=== PATIENT | female | born 1960 | race Caucasian/White ===

== ENCOUNTER 2019-06-12 12:51 | Emergency (ER) | payer OTHER, SELFPAY ==
[2019-06-12 12:52] VITALS: BP 174/97; PULSE 99; RESP 18; TEMP 36.8; O2SAT 96; BMI 28.7
--- NOTE | 2019-06-12 13:12 | RAD_ITS ---
STUDY: X-RAY CHEST REASON FOR EXAM: Female, 58 years old. cough, congestion TECHNIQUE: PA and lateral views of the chest. COMPARISON: None. FINDINGS: The lungs are clear and expanded. There is no demonstrated pleural abnormality. Normal size heart. Normal mediastinum and williams. Normal visualized pulmonary arteries. Normal visualized aortic arch and descending thoracic aorta. There are diffuse degenerative changes of the visualized thoracic spine. There is diffuse osteopenia. There is no demonstrated abnormality of the visualized soft tissue structures of the upper abdomen. RAD/Chest PA and Lateral IMPRESSION: No acute cardiopulmonary process. Electronically Signed: Neal Kramer MD (Brooks) at 14:09 EST , Service support ,
--- NOTE | 2019-06-12 13:19 | ED.VIS.GEN ---
History of Present Illness Chief Complaint: Cough Narrative: She presents emergency department for evaluation of cough. She states about 1 and a 1/2 weeks ago she Developed a fever and URI symptoms. She went to urgent care and was felt that it could potentially be influenza. She states that she got better but a few days later got sick again. This time it felt like the cough is in her chest. She notes yellow sputum production. She went back to urgent care about 3 days ago and was placed on prednisone and an inhaler and cough medication. She states she is not feeling any better. She is worried about pneumonia. Past Medical History - Allergies and Home Meds Allergies/Adverse Reactions: Allergies Sulfa (Sulfonamide Antibiotics) Adverse Reaction (Verified 06/12/19 12:52) Upset Stomach Primary Care Physician: NOT,DEFINED [NON-STAFF] - Review of Systems General: Reports: Chills, Fever. Denies: Sweats Eyes: Denies: Visual changes - bilaterally, Diplopia ENT: Reports: Rhinorrhea. Denies: Sore throat Cardiovascular: Denies: Chest pain, Palpitations Respiratory: Reports: Dyspnea, Cough, Sputum, Dyspnea on exertion Gastrointestinal: Denies: Abdominal pain, Nausea, Vomiting, Diarrhea, Melena, Hematochezia Genitourinary: Denies: Dysuria, Hematuria, Frequency Musculoskeletal: Denies: Back pain, Extremity Pain Skin: Denies: Rash, Wounds Neurological: Denies: Headache, Weakness, Numbness Physical Exam Vital Signs/Narrative: Vital Signs Temp Pulse Resp BP Pulse Ox 06/12/19 12:52 98.3 F 99 18 174/97 H 96 General: Well nourished, Well developed, No Acute Distress Head: Normocephalic, Atraumatic Eyes: Perrl, EOMI ENT: Moist mucous membranes, No rhinorrhea Neck: Supple, Nontender Cardiovascular: Regular rate, Regular rhythm, No murmurs Respiratory: No distress, Chest nontender, Rhonchi, Wheezing Abdomen: Soft, Nontender, Nondistended, Normal bowel sounds Back: Nontender, Normal Inspection Extremities: Nontender, No edema Skin: Normal color, No rash Neurological: Alert, Oriented x3, Cranial nerves II-XII grossly intact, Normal Strength, Normal Sensation Psychological: Normal affect, Normal Mood Diagnostic/Tx/Re-eval - Medical Decision Making Patient received a DuoNeb and her lung sounds and symptomology are better. Her chest x-ray I am concerned may have a developing left lower lobe infiltrate however radiology felt that there is no acute findings. Patient will be using her albuterol more than what she has been. I instructed her to use 3 puffs every 3 hours and we will provide her with a spacer. We will place her on Zithromax. She should can continue her prednisone. Follow-up if not improving return if worsening or concerns ED Disposition - Plan for ED Patient: Disposition: Home or Assisted Living Diagnosis: Bronchitis Instructions: BRONCHITIS with Wheezing (Adult) Prescriptions: Azithromycin [Zithromax Z-Kosta] 250 mg PO UD #1 box Prescription Printed Referrals: Hudson Russell III, MD [STAFF PHYSICIAN] - 3-5 Days if not improving Additional Instructions: Please use the inhaler 3 puffs every 3 hours. Take the full course of antibiotics.
[2019-06-12] MEDS: Ipratropium/Albuterol Sulfate 3 ML AMPUL.NEB INHALATION (13:28)
[2019-06-12 13:30] VITALS: PULSE 102; RESP 16; O2SAT 96
[2019-06-12 14:36] VITALS: BP 145/69; PULSE 94; RESP 18; O2SAT 92
== END 2019-06-12 14:41 | disposition home or self-care (01) ==
PROVIDERS: Emergency Provider Emergency Medicine
DX: J40 Bronchitis, not specified as acute or chronic (principal)
CPT/HCPCS: 71046; 94640; 99282

== ENCOUNTER 2022-10-10 14:39 | Emergency (ER) | payer OTHER, SELFPAY ==
[2022-10-10 14:41] VITALS: BP 146/73; PULSE 69; RESP 16; TEMP 36.6; O2SAT 100; BMI 30.5
--- NOTE | 2022-10-10 14:50 | RAD_ITS ---
STUDY: X-RAY - RIGHT WRIST REASON FOR EXAM: Female, 62 years old. Trauma. Pain. TECHNIQUE: 4 view(s) of the wrist were obtained. COMPARISON: None. FINDINGS: Osteopenia. Comminuted impacted fracture of the distal radius with dorsal displacement of the distal fragment and extension of the fracture into the radiocarpal joint. Probable nondisplaced ulnar styloid fracture although this is difficult to see with overlying fixation. Diffuse osteoarthritic changes. Soft tissue swelling. RAD/Wrist min 3 Views IMPRESSION: Distal radial fracture as described. Electronically Signed: Roberth Flores MD at 15:05 EDT ,
--- NOTE | 2022-10-10 15:37 | EX.ED.UPPERE ---
HPI History of Present Illness Chief Complaint: Upper Extremity Injury Informant: patient Occured/Mechanism Mechanism/Context: Yes fall Comment: MOHIT Liz Onset/Context/Timing Onset: Today Context: Sudden Onset Timing: Continuous Quality of Pain: Aching Location: Right wrist Current Severity: Moderate Maximum Severity: Severe Worsened by: Movement Relieved by: Remaining still Associated Symptoms Associated Symptoms: Positive for Parasthesia and Loss of Funtion; Negative for Weakness Narrative Narrative: Patient was at work tripped and fell onto outstretched hand injuring her right wrist denies any other injury. Brought by EMS with splint due to deformity. PFSH PFSH Medical History no medical history no medical history Home Medications azithromycin 250 mg tablet 250 mg PO UD ##1 06/12/19 [Rx Last Taken Unknown] hydrocodone-acetaminophen 5-325mg 5mg-325mg 1 tab PO Q6H PRN PRN Pain 2 days #8 TABLETS 10/10/22 [Rx Last Taken Unknown] Allergy/AdvReac Type Severity Reaction Status Date / Time Sulfa (Sulfonamide AdvReac Upset Verified 10/10/22 14:43 Antibiotics) Stomach Social History Smoking Status: Never smoker ROS ROS ED Constitutional Constitutional ED: Denies chills or fever(s) Musculoskeletal Musculoskeletal: Reports extremity pain; Denies neck pain Integumentary Denies Abrasions, rash or wounds Neurologic Neurologic: Reports paresthesias; Denies weakness EXAM Physical Exam Const Vital Signs: 10/10/22 14:41 Temperature 98 F Temperature Source Temporal Pulse Rate 69 Respiratory Rate 16 Blood Pressure 146/73 H Blood Pressure Mean 97 Pulse Ox 100 Oxygen Delivery Method Room Air Positive well nourished and well developed General Appearance ED: well developed and NAD HEENT normocephalic and atraumatic Neck full ROM and supple Back/Spine normal ROM and normal to inspection Extremity Extremity Narrative: Swollen deformity right wrist, no laceration or bleeding. Tender throughout the distal radius/wrist. No hand bone tenderness or bony tenderness proximal to the wrist. Very limited range of motion of the wrist due to pain. Neuro oriented x3 and no focal motor deficits Neuro Narrative: Subjective paresthesias/decreased sensation in right median nerve distribution, but sensation grossly intact. She states it feels normal on her small finger. Sensorium / Orientation: alert Psych mental status grossly normal and thought process normal Skin no wounds Rashes: no rashes MDM MDM MDM Narrative Medical decision making narrative: Three-view x-ray series of the right wrist to my interpretation shows a displaced distal radius fracture and ulnar styloid fracture. Confirmed by radiology report which I reviewed. Discussed pain control with the patient, she declines analgesics but is amenable to my recommendation for hematoma block and closed reduction and splinting and follow-up with orthopedics as she will likely need surgical intervention. Discussed all this with Dr. Willis orthopedics agrees with outpatient follow-up. Radiography Diagnostic Testing: Clinical Impression(s) from Imaging Studies Wrist X-Ray 10/10/22 14:50 IMPRESSION: Distal radial fracture as described. Electronically Signed: Roberth Flores MD at 15:05 EDT , Procedures Upper Extremity Splints Upper Extremity Splint: Orthoglass (AP Short arm) Splint Fabrication: Fabricated (Neurovascular intact distally) Location: Right Other Procedures Procedure(s): Hematoma block: Dorsal approach right wrist after informed consent, prepped with isopropanol, instilled a total of 8 cc into the fracture site distal radius after aspirating small mount of blood, tolerated well no complications, good anesthesia obtained Closed reduction right distal radius fracture: After above hematoma block and informed consent, for manual reduction, the displacement is improved (but not anatomic) on postreduction films, 2 views interpreted by myself. Neurovascular intact distally afterwards, no complications tolerated very well after hematoma block. Discharge Plan Triage Chief Complaint: Upper Extremity Injury ED Provider: Henri Brian Dx/Rx/DC Orders Clinical Impression: Colles' fracture of right radius Instructions: ED Colles Fracture, Reduction Required Prescriptions: New hydrocodone-acetaminophen [hydrocodone-acetaminophen] 5-325 mg tablet 1 tab PO Q6H PRN PRN (Reason: Pain) 2 Days Qty: 8 0RF No Action azithromycin 250 MG tablet 250 mg PO UD Qty: 1 0RF Rx Instructions: TAKE 2 TABLETS 1ST DAY THEN 1 TABLET DAILY FOR NEXT 4 DAYS. Primary Care Provider: Care Physician,No Primary Referrals: Fortunato Willis MD [Med Staff - Active Staff] - As soon as possible (call for appt) Disposition Disposition: Home, Self Care
[2022-10-10] MEDS: Lidocaine 1% (20 ml mdv) 20 ML Vial 8 ML INFILT (16:03)
--- NOTE | 2022-10-10 16:46 | RAD_ITS ---
STUDY: XR Wrist 2 Views REASON FOR EXAM: Female, 62 years old. postreduction -- PORTABLE TECHNIQUE: XR Wrist 2 Views RIGHT COMPARISON: Study done earlier today. FINDINGS: There is a nondisplaced ulnar styloid fracture. Comminuted distal radial fracture with impaction. Articular extension noted. Volar apex angulation of the distal radial fracture. There are no acute findings of the radiocarpal articulation. Normal distal radioulnar articulation. Normal carpal bones. Normal carpal articulations. There is degenerative arthrosis of the carpometacarpal articulation of the thumb. Normal second through fifth carpometacarpal articulations. There are no acute findings of the visualized metacarpal bones. The soft tissue structures are unremarkable. RAD/Wrist 2 Views IMPRESSION: No change in the alignment status post reduction. Electronically Signed: Jim Lisa MD at 17:08 EDT ,
--- NOTE | 2022-10-10 17:16 | CONS.ORTHO ---
HPI Consult Data Date of Consult: 10/10/22 HPI Narrative HPI Narrative: STANISLAW GÓMEZ, is a 62 F who presents with a distal radius fracture. Called by ED physician who performed a closed reduction and casting. wishes to arrange FU care. WCB injury. PFSH Medical History no medical history Home Medications azithromycin 250 mg tablet 250 mg PO UD ##1 06/12/19 [Rx Last Taken Unknown] hydrocodone-acetaminophen 5-325mg 5mg-325mg 1 tab PO Q6H PRN PRN Pain 2 days #8 TABLETS 10/10/22 [Rx Last Taken Unknown] Allergy/AdvReac Type Severity Reaction Status Date / Time Sulfa (Sulfonamide AdvReac Upset Verified 10/10/22 14:43 Antibiotics) Stomach Social History Smoking Status: Never smoker Vital Signs Vital Signs Vital Signs: 10/10/22 14:41 Temperature 98 F Temperature Source Temporal Pulse Rate 69 Respiratory Rate 16 Blood Pressure 146/73 H Blood Pressure Mean 97 Pulse Ox 100 Oxygen Delivery Method Room Air Weight Weight: 178 lb Body Mass Index (BMI) 30.5 Radiology Impression Wrist X-Ray 10/10/22 14:50 IMPRESSION: Distal radial fracture as described. Electronically Signed: Roberth Flores MD at 15:05 EDT , Wrist X-Ray 10/10/22 16:46 IMPRESSION: No change in the alignment status post reduction. Electronically Signed: Jim Lisa MD at 17:08 EDT , Assessment & Plan Assessment/Plan (1) Colles' fracture of right radius: PLAN: 62 F right distal radius fracture post closed reduction and casting. No acute concerns per ED provider, closed and neurovasc intact per verbal report, so patient ok to FU on Thursday for discussion of options. For now, elevate and typical cast care instructions.
== END 2022-10-10 19:51 | disposition home or self-care (01) ==
PROVIDERS: Emergency Provider Emergency Medicine; Visit Provider Emergency Medicine
DX: S52.531A Colles' fracture of right radius, initial encounter for closed fracture (principal); W01.0XXA Fall on same level from slipping, tripping and stumbling without subsequent striking against object, initial encounter
CPT/HCPCS: 29125; 73100; 73110; 99284

== ENCOUNTER 2022-10-17 10:13 | Day surgery (SDC) | payer OTHER, SELFPAY ==
[2022-10-17] VITALS (8 sets, daily range): BP systolic 126–166; BP diastolic 53–82; PULSE 72–93; RESP 16–18; TEMP 37.2–37.4; O2SAT 92–100; BMI 30.6
[2022-10-17] MEDS: Lactated Ringers 1,000 ML 15 ML IV (10:48)
--- NOTE | 2022-10-17 11:48 | RAD_ITS ---
INDICATION: FX EXAMINATION/TECHNIQUE: X-RAY - RIGHT XR Wrist 2 Views 4 VIEWS COMPARISON: 10/14/2022 FINDINGS: 4 fluoroscopic intraoperative spot films obtained during ORIF right radial fracture. Refer to operative notes for procedure details. Total fluoroscopic time 71 seconds RAD/Wrist 2 Views IMPRESSION: Intraoperative spot films of ORIF right wrist. Electronically Signed: Kevin Jacobo MD at 19:59 EDT ,
--- NOTE | 2022-10-17 11:49 | PCM.HP.STD ---
HPI - General HPI Narrative STANISLAW GÓMEZ, is a 62 F who presents for right DRF ORIF. no changes to h and p. ok to proceed. rab and narcotic counselling. right wrist volar side marked. no further questions. MR#: [id number] Acct: [id number] Name:STANISLAW OLIVO Rep #: [id number] : 1960 ? ? Provider: Dr. Fortunato Willis MD Age/Sex:? 62/F ? ? Location: [facility] Status: Signed Intake Intake Visit Reasons:?RIGHT WRIST Is patient in pain?: No Allergies Sulfa (Sulfonamide Antibiotics) Adverse Reaction (Verified 10/14/22 13:15) Upset Stomach Medications azithromycin 250 mg tablet 250 mg PO UD ##1 06/12/19 [Rx Confirmed 10/14/22] hydrocodone-acetaminophen 5-325mg 5mg-325mg 1 tab PO Q6H PRN PRN Pain 2 days #8 TABLETS 10/10/22 [Rx Confirmed 10/14/22] PFSH Surgical History?(Updated 10/14/22 @ 13:16 by Elisa Medina) History of appendectomy Social History? Smoking Status:? Never smoker HPI RIGHT WRIST Details: Parts of this documentation were recorded by a scribe, this documentation accurately reflects the service provided and the decisions made by me, Dr. Fortunato Willis MD 10/14/22 0851. 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 RHD. fell on October 10. tripped on a band / cord FOOSH. Ortho Exam General General: Yes no acute distress Neurologic: Yes alert and Yes oriented x3 Psychologic: Yes reasonable and appropriate Right Wrist/Hand Skin/Wound: Yes CDI, Yes Swelling, Yes Ecchymosis, Yes nail intact and Yes capillary refill normal Right Wrist: Yes TTP Fracture site Motor: EPL: 4, FDP-2: 4, 1st Dorsal Interosseous: 4 and APB: 4 Sensation: Radial: I, Ulnar: I and Median: I WRIST: hand warm well perfused, closed moderate swelling, comps soft Left Wrist/Hand Skin/Wound: Yes Swelling and Yes Ecchymosis Supplemental Info [facility] Services [address] [place] [address] Wrist 2 Views MR#:? [id number] Acct: [id number] Name:? STANISLAW GÓMEZ Rep #: [id number] :?? 1960 F 62 ? From:? ? Jim Lisa MD PCP: Care Physician,No Primary ? Status: REG ER Study: Wrist 2 Views ? Date of Exam: 10/10/22 Exam# [id number] ? [facility] Imaging Services [address] [place] [address] Wrist min 3 Views MR#:? [id number] Acct: [id number] Name:? STANISLAW GÓMEZ Rep #: [id number] :?? 1960 F 62 ? From:? ? Roberth Flores MD PCP: Care Physician,No Primary ? Status: PRE ER Study: Wrist min 3 Views ? Date of Exam: 10/10/22 Exam# [id number] ? Ordering Dr:? Provider,Ed P. STUDY: ? X-RAY - RIGHT WRIST REASON FOR EXAM: ? Female, 62 years old.? Trauma. Pain. TECHNIQUE: ? 4 view(s) of the wrist were obtained. COMPARISON: ? None. FINDINGS: Osteopenia. Comminuted impacted fracture of the distal radius with dorsal displacement of the distal fragment and extension of the fracture into the radiocarpal joint. Probable nondisplaced ulnar styloid fracture although this is difficult to see with overlying fixation. Diffuse osteoarthritic changes. Soft tissue swelling. RAD/Wrist min 3 Views IMPRESSION: Distal radial fracture as described. ? Electronically Signed: Roberth Flores MD at 15:05 EDT , Ordering Dr:? Henri Brian MD STUDY: ? XR Wrist 2 Views REASON FOR EXAM: ? Female, 62 years old.? postreduction -- PORTABLE TECHNIQUE: ? XR Wrist 2 Views RIGHT COMPARISON: ? Study done earlier today. FINDINGS: There is a nondisplaced ulnar styloid fracture. Comminuted distal radial fracture with impaction. Articular extension noted. Volar apex angulation of the distal radial fracture. There are no acute findings of the radiocarpal articulation.? Normal distal radioulnar articulation.? Normal carpal bones.? Normal carpal articulations. There is degenerative arthrosis of the carpometacarpal articulation of the thumb.? Normal second through fifth carpometacarpal articulations. There are no acute findings of the visualized metacarpal bones. The soft tissue structures are unremarkable. RAD/Wrist 2 Views IMPRESSION: No change in the alignment status post reduction. ? Electronically Signed: Jim Lisa MD at 17:08 EDT , repeat xr right wrist 3 views - Coding Level of Care Code Off vis,new,level 3 Diagnoses Colles' fracture of right radius? S52.886V Assessment and Plan Assessment and Plan (1) Colles' fracture of right radius: ?Status:?Acute ?Plan: 62-year-old female right radius fracture with initial moderate amount of dorsal angulation with residual dorsal angulation over 5 degrees with an intra-articular component and some mild comminution.? Discussed different ways of treating this closed management with cast for 6 weeks versus open reduction internal fixation volar plating.? Probably this will go on to further displacement of the cast given the initial displacement patient would likely lose some range of motion of the wrist especially in flexion.? That being said surgery has its onset of risk and complications.? The patient is quite active in her job would prefer to have the best chance of good range of motion of the wrist therefore like to go ahead with right distal radius open reduction internal fixation. Pros and cons risks and benefits were discussed with the patient including but not limited to infection, pain, stiffness, bleeding, damage to surrounding structures, neurovascular injury, recurrence or retear, failure or wear of hardware or fixation, instability, fracture, deep vein thrombosis and pulmonary embolism, anesthetic risks, , patient dissatisfaction, need for further surgery and other risks.? Patient understood and wished to proceed with surgery, and signed the informed consent documentation. [facility] Medical History (Updated 10/15/22 @ 15:15 by Mercedes Holly) Anxiety Heartburn History of edema History of rheumatic fever Leg cramps Non-smoker Post-menopausal Wears dentures Wears glasses Home Medications Adk5 1 cap PO/SL DAILY 10/15/22 [History Last Taken Unknown] Dim 1 cap PO/SL QHS 10/15/22 [History Last Taken Unknown] Fucoydon 1 oz PO/SL DAILY 10/15/22 [History Last Taken Unknown] dietary supplement 3 cap PO DAILY 10/15/22 [History Last Taken Unknown] progesterone micronized 200 mg capsule 200 mg PO QHS 10/15/22 [History Last Taken Unknown] Allergy/AdvReac Type Severity Reaction Status Date / Time Sulfa (Sulfonamide AdvReac Upset Verified 10/17/22 10:42 Antibiotics) Stomach Surgical History (Updated 10/15/22 @ 15:15 by Mercedes Holly) History of appendectomy History of tympanoplasty Social History Smoking Status: Never smoker Vital Signs Vital Signs Vital Signs: 10/17/22 10:43 10/17/22 10:43 Temperature 99 F Temperature Source Temporal Pulse Rate 93 Respiratory Rate 16 Respiratory Pattern Normal Blood Pressure 166/79 H Blood Pressure Mean 108 Blood Pressure Source Monitor Blood Pressure Position Semi-Fowlers Blood Pressure Location Left Arm Pulse Ox 97 Oxygen Delivery Method Room Air Weight Weight: 178 lb 9.191 oz Body Mass Index (BMI) 30.6
--- NOTE | 2022-10-17 12:08 | EKG12_ITS ---
Test Reason : PACU Blood Pressure : / mmHG Vent. Rate : 085 BPM Atrial Rate : 085 BPM P-R Int : 170 ms QRS Dur : 068 ms QT Int : 392 ms P-R-T Axes : 067 057 059 degrees QTc Int : 466 ms Normal sinus rhythm Normal ECG When compared with ECG of 29-JUL-2008 20:50, No significant change was found Confirmed by KATERINE DAMIAN, JOCELYNE ([id number]), newspaper editor WAGNER BRENNAN ([id number]) on 10/21/2022 9:09:36 AM Referred By: Fortunato Willis Confirmed By:JOCELYNE GARCIAS MD
[2022-10-17] MEDS: Cefazolin 2 GM in 0.9% Normal Saline 100 ML IV (12:18)
--- NOTE | 2022-10-17 13:33 | OP.PCM_ITS ---
Problems Associated Problem List Diagnoses (1) Colles' fracture of right radius: Report of Operation Date of Procedure: 10/17/22 Pre-Operative Diagnosis: right distal radius fracture Post-Operative Diagnosis: same Surgery/Procedure Performed:: right distal radius ORIF Surgeon: Fortunato Willis Type of Anesthesia: Block,Regional and General Anesthesiologist: Hugo Castillo Estimated Blood Loss (mL): 20 Description of Procedure: Patient brought to the operating room theater. Placed supine on the table. General anesthesia induced. 2 g IV Ancef administered prior to the start of the procedure. Hand table the patient's operative side. 18 inch tourniquet applied appropriately padded. All bony prominences padded. SCDs on the legs. Upper extremity prepped and draped in usual sterile fashion of correcting based prep solution allowing over 3 minutes drying time prior to draping. Preoperative timeout performed to confirm the site patient and the surgery. Began by exsanguinating the limb inflated the tourniquet to 250 mmHg. Made a standard volar FCR approach to the wrist incision stopping at the wrist crease. Carried dissection down through skin subcutaneous tissue and achieve meticulous hemostasis. Incised the sheath overlying the FCR tendon as well as subsheath retracted the tendon radially. Identified FPL retracted this ulnarly. Identified pronator quadratus made an L-shaped capsulotomy. The fracture was already a little bit button holed through this. Elevated this muscle from radial to ulnar. I cleaned away any interposed hematoma and fracture periosteum. I achieved a preliminary reduction with longitudinal traction and ulnar deviation and direct manipulation of the fracture with a lobster claw forcep. Selected a Synthes precontoured volar plate 3 proximal holes. Placed on the volar surface of the bone. Placed 1 cortical screw on the radial styloid column, followed by 3 locking screws at the distal 4 screw holes to achieve good reduction of the plate down to the volar surface of the distal fragment. There is an intra-articular split which reduced without gap or step. 3 pieces distal fragments. Achieve radial and ulnar length inclination and tilt. Confirmed this on AP lateral as well as a true lateral 30 degree tilt view. Next inserted 2.7 mm fully threaded cortical screw in the oblong proximal hole to secure the plate down to bone and further correct the volar tilt on the lateral radiograph. Had to change this to a 12 mm long as well as put 2 fully threaded cortical locking screws at the 2 most proximal end holes of the plate using 12 mm screws. Final radiographs taken and saved onto the system. Thorough irrigation with saline. Tourniquet let down meticulous hemostasis achieved. Subcutaneous tissue closed with 2-0 Vicryl and 3-0 Monocryl. Skin cleaned with wet dry dressing followed application of Steri-Strips Adaptic 4 x 4 gauze sterile cast padding followed by a volar prefabricated fiberglass splint loosely wrapped with 4 inch Herrera bandage. Patient woken up from GA, then transfer off the operating table to the post anesthesia care unit in stable addition. All sponge needle instrument counts correct. no Complications. Plan for the patient discharged home when they are comfortable according to day surgery criteria follow-up in the office early next week. Complications none Admit VTE Documentation VTE Present on Admission: No VTE Mechan Device Prophylaxis: SCD's VTE Pharm Prophylaxis ordered?: No Reason prophylaxis not ordered:: Treatment Not Indicated Procedures Musculoskeletal 20xxx-29xxx: Other Procedure See Report
--- NOTE | 2022-10-17 13:40 | DCINST_ITS ---
Discharge Instructions Diet Discharge Diet: No restrictions Activity Lifting Restrictions: rom of fingers and elbow ok, no lifting over 1 pound Keep extremity elevated above heart level: Operative Extremity Dressing / Incision Call your doctor if your incision/area has: Continuous Slow Oozing, Sudden Increased Bleeding, Increased Pain/ Swelling, Increased Redness, Foul Smelling Discharge and Swelling at the incision site Remove Dressing in: leave in place till F/U Follow Up Care Please Follow Up With: Fortunato Willis MD When: early next week Test Results: Test results from this visit will be discussed in further detail at your follow- up appointment, if applicable. Discharge Plan Admission Attending Provider: Fortunato Willis Primary Care Provider: Care Physician,No Primary Instructions Patient Instructions: Wrist Fracture Discharge Orders/Prescriptions Prescriptions: New oxycodone-acetaminophen [Endocet] 5-325 mg tablet 1 tab PO Q6H MDD 6 PRN (Reason: pain) 5 Days Qty: 20 0RF No Action Adk5 1 cap PO/SL DAILY progesterone micronized 200 mg Capsule 200 mg PO QHS dietary supplement Capsule 3 cap PO DAILY Dim 1 cap PO/SL QHS Fucoydon 1 oz PO/SL DAILY Referrals / Follow Up: Fortunato Willis MD [Med Staff - Active Staff] - Care Physician,No Primary [Primary Care Provider] - Disposition Disposition (needs filled in before D/C Order can be placed): Home, Self Care
== END 2022-10-17 16:35 | disposition home or self-care (01) ==
LOC: SDC 10:15 → AC 10:17
PROVIDERS: Referring Provider Orthopaedic Surgery Sports Medicine; Visit Provider Orthopaedic Surgery Sports Medicine
PROC: (CPT 25609; principal; 2022-10-17 11:40)
DX: S52.531A Colles' fracture of right radius, initial encounter for closed fracture (principal); W18.09XA Striking against other object with subsequent fall, initial encounter; Y93.89 Activity, other specified; Y99.0 Civilian activity done for income or pay
CPT/HCPCS: 25609; 01830; 64417; 73100; 76000; 93005; C1713; J7120; J2405

== ENCOUNTER 2023-02-26 15:00 | Outpatient (RCR) | payer OTHER, SELFPAY ==
--- NOTE | 2022-11-24 14:30 | HP.OTEVAL ---
Patient's Visit Information Visit Information Visit Information: STANISLAW GÓMEZ is a 62 year old F, referred to Occupational Therapy by Dr. Fortunato Willis MD, with a diagnosis of S52.531A colles fracture of right radius. Date of Evaluation: 11/04/22 Occupational Therapist: Ivone Johnson Subjective Subjective: Pt tripped on something at work and fell on her wrist. Works at [employer]. DOI was 10/10 and date of sx 10/17. Pt presents 2 weeks and 4 days out from sx. Pt here on C9 [facility] order with restrictions. Lifting restriction of 1# (coffee cup) on R hand hand. Pt is right hand dominant. Pt has difficulty with some ADLs and requires some help from her sister who is present for eval. Pain is typically worse at night vs morning. Pt here with brace and sling donned. Sling is starting to wean as well as brace if she isn't active. Brace at night sometimes. Feels more pain in the morning if she does not have brace on at night. Pt with sore from brace noted on lateral side of D5 MCP joint as well as medial side of D2 MCP joint. Pain R wrist: Current Pain Intensity: 0 Pain Intensity Range: 0 and 5 Objective Objective/Observation: Pt with increased soreness and fatigue following all ROM testing, but no increased pain. ROM Shoulder: WFL Elbow: R -40/140 Forearm: SUP 50 increased pain, PRO 65 Wrist: WF 35, WE 20, RD 10, UD 10 MP: -13/44 IP: 0/22 Radial Abduction: -20/30 Palmar Abduction: -20/35 MP: R D2 -5/50, D3 -5/52, D4 -5/45, D5 -5/44 PIP: R D2 0/35, D3 0/40, D4 0/5-0, D5 0/45 DIP: R D2 0/24, D3 0/17, D4 0/30, D5 0/35 ROM Comments: PATEL R D2 104, D3 104, D4 120, D5 119 Pt with increased difficulty for thumb opposition to ulnar side of hand in all positions Strength Help Desk Specialist: L 47# R 0# Lateral Pinch: L 8# R 1# Tripod Pinch: L 6# R 0# Edema Wrist: R 6.8cm L 5.5cm Other: MCP R 8.7cm L 8.0cm Nine Hole Peg Right: 79 Left: 32 In-Hand Manipulation Finger to Palm Translation: Unable - Right Palm to Finger Translation: Unable - Right Quick DASH-Disab of Arm,Shoulder& Hand Quick DASH Score: 77.2725 Goals Goal:: Pt to demo improved R line rider strength by 20# in order to improve functional grasp during ADL tasks. Goal:: Pt to improve R WF/WE by 20' at discharge in order to improve functional movement during dressing tasks. Goal:: Pt to demo improved functional FMC of dominant hand by decreasing 9HPT time by 30 seconds by discharge. Goal:: Pt to demo improved PATEL of R D2/3/4/5 by 30' by discharge for increased ability to make full fist to grasp objects for functional use. Goal:: Pt to demo improved overall independence at home/work by decreased DASH score by 15 points by discharge. Rehabilitation General Assessment: Pt presenting 2 weeks 4 days s/p ORIF with decreased ROM, increased stiffness, increased pain, decreased strength and decreased FMC. Pt sister present for eval and able to demo good understanding of HEP along with patient following patient demonstration. Pt provided with HEP for elbow/wrist AROM initiation along with tendon glides to be performed as per [place] hand protocol. Pt would benefit from skilled OT services x3/week for 5 weeks within time frame of [facility] date restrictions in order improve strength, ROM, FMC, and indep in ADL/IADLs. Pt provided with stockinette under brace to help protect from rubbing of brace on bare skin. Rehabilitation Potential: Good Anticipated Interventions Anticipated Interventions: A/AAROM/PROM, Strengthening, Edema Control, Scar Care, Massage, Triggerpoint Release, Desensitization, Modalities, Fine Motor Coord/Thomas and Home Program Visit Plan Frequency: 3x /Week Duration: 5 weeks General Plan: Pt would benefit from skilled OT services 3x/week for 5 weeks within [facility] time frame in order to demo improved ROM, strength, and FMC to improve overall indep in ADLs/IADLs. TEXT: Thank you for the opportunity to evaluate your patient. For Medicare and Medicare HMO plans, please review the plan of care and approve it. It will need to be FAXED BACK to us at [phone] for Medicare purposes. Please let me know if there are questions or concerns regarding this plan of care. Physician Signature: Date:
--- NOTE | 2022-12-08 18:44 | OTREVAL_ITS ---
Re-Evaluation Intro: Dr. Fortunato Willis MD, It has been my pleasure to treat STANISLAW GÓEMZ over the last 14 visits for S52.531A colles fracture of right radius. Please see the progress note below for an update on the occupational therapy plan of care! Subjective Subjective: pt arrives to OT s/p ORIF 7 weeks 3 days. pt demo limited composite fist-incision is red and noted stitch protruding from incision. Objective Objective/Function: Thumb: MP Current 0/50 Prior - IP Current 0/36 0/22 RA Current -30 Prior - PA Current - Prior - Current Fingers MP: IF - MF 15/60 RF 10 LF 15/ Prior MP: IF -, MF -, RF -45, LF -44 Current PIP: IF - MF - RF - LF - Prior PIP: IF 0/35, MF 0/40, RF 0/5, LF 0/45 Current DIP IF 042 MF 0/46 RF -2/43 LF -538 Prior DIP: IF 0/24, MF 0/17, RF 0/30, LF 0/35 R Wrist Current 45/[address] Current 5* Prior 10* UD Current 25* Prior 10* Supination: Current 55* Prior 50* Pronation: Current 90* Prior 65* Reservation Manager Strength: Current 1# Prior 0# Lateral Strength: Current 5# Prior 1# Pinch Strength: Current 3# Prior 0# 9HPT: Current R 25 sec Prior 79 sec pt is working with AROM/PROM use of edema glove and initiate of normal use of hand as able also ed. pt on lift of 3-5# pt demo with some stitch irritation we have been monitoring as well pt is compliant with therapy - noted swelling and limited composite fist increasing pt difficulty with returning to use of right hand with ADLs and IADLs. Plan Plan Frequency: 3x /Week Duration: 5 weeks Visits in this POC: 5 weeks (3x week) Plan: Pt limited in strength in and MP flexion. Pt unable to make a composite fist. Advised pt to call to schedule a follow-up. Pt would benefit from further skilled OT 1-2x week for next 4 weeks to increase ability and strength in R hand to safely return back to work and prior level of function. Goals Goals Patient Goals: Regain Mobility, Regain Strength, Decrease Pain, Return to Work, Decrease Swelling/Stiffness, Improve Fine Motor Skills, Use Hand/Wrist/Arm Normally Again, Increase ROM, Be More Independent in ADLS and Learn how to Apply Compression Stockings Other: pt would benefit from compression garment provided at next session. 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 Goal:: Pt to improve R WF/WE by 20' at discharge in order to improve functional movement during dressing tasks. Goal:: Pt to demo improved functional FMC of dominant hand by decreasing 9HPT time by 30 seconds by discharge. Goal:: Pt to demo improved PATEL of R D2/3/4/5 by 30' by discharge for increased ability to make full fist to grasp objects for functional use. Goal:: Pt to demo improved overall independence at home/work by decreased DASH score by 15 points by discharge. Anticipated Interventions Anticipated Interventions Anticipated Interventions: A/AAROM/PROM, Strengthening, Edema Control, Scar Care, Triggerpoint Release, Desensitization, Modalities, Orthoses, Joint Protection/Energy Conservation, Fine Motor Coord/Thomas, Education re assistive Equipment, Education re Diagnosis and Home Program Re-Evaluation Ending Re-evaluation ending: Please do not hesitate to contact me at [phone] by phone or if you have questions or concerns regarding this new plan of care! Sincerely, Shefali Neff, OTR/L, CHT
--- NOTE | 2023-02-26 15:25 | HP.OTDCSUM_ITS ---
Discharge Summary D/C Summary: It has been my pleasure to treat STANISLAW GÓMEZ under orders from Dr. Fortunato Willis MD, for the diagnosis of S52.531A colles fracture of right radius for a total of 5 visit(s). Please see the following information for a summary of their discharge status. Overall Improvement % Improvement: 90 Objective Objective/Function: right wrist 65/ 40 right senior safety management consultant strength 30# left 45# pt demo with composite fist pt states she is back on her normal job at work and working 8 hour days. pt feels she is back to her baseline - pt states she feels her ability at work is her normal- pt states she is IND with All cooking/cleaning pt states no difficulty with laundry- pt agrees with d/c Goals Patient Goals: Regain Mobility, Regain Strength, Decrease Pain, Return to Work, Decrease Swelling/Stiffness, Improve Fine Motor Skills, Use Hand/Wrist/Arm Normally Again, Increase ROM, Be More Independent in ADLS and Learn how to Apply Compression Stockings Other: pt would benefit from compression garment provided at next session. Goal:: Pt to demo improved R senior safety management consultant strength by 20# in order to improve functional grasp during ADL tasks. ( goal met) Goal:: Pt to improve R AROM WF/WE to 45/45 at discharge in order to improve functional movement during dressing tasks. (goal met) Goal:: Pt to demo improved functional FMC of dominant hand by decreasing 9HPT time by 30 seconds by discharge. Goal:: Pt to demo improved PATEL of R D2/3/4/5 by 30' by discharge for increased ability to make full fist to grasp objects for functional use.( goal met) Goal:: Pt to demo improved overall independence at home/work by decreased DASH score by 15 points by discharge. (goal met) Plan Plan: pt has met OT goals and is D/C at this time. pt agrees with d.c D/C Information Discharge Comments: pt has been seen for 13 OT session following a distal right radius fx with ORIF- pt did have complications of swelling and finger stiffness- pt has since gained full fist and has reached a good functional senior safety management consultant strength- pt agrees to D/C and reports she will cont. with stretching as needed and strengthening- pt has returned to her reg. job duties without difficulty. pt d.c at this time as she met OT goals and agree to d.c. with HEP d/c sentence: If there are questions or concerns regarding this patient's occupational therapy, please fell free to call me at [phone]. Thank you for the referral of this patient. Sincerely, Shefali Neff, OTR/L, CHT
== END 2023-02-26 19:00 | disposition home or self-care (01) ==
LOC: OT 15:00
PROVIDERS: Referring Provider Orthopaedic Surgery Sports Medicine; Visit Provider Orthopaedic Surgery Sports Medicine
DX: S52.531D Colles' fracture of right radius, subsequent encounter for closed fracture with routine healing (principal)
CPT/HCPCS: 97110; 97140; 97165; 97530

== ENCOUNTER → 2024-04-01 | Outpatient (CLI) | payer OTHER, SELFPAY ==
--- NOTE | 2024-04-01 11:42 | BI_ITS ---
MAMMOGRAPHY - BILATERAL SCREENING REASON FOR EXAM: Female, 63 years old. Routine annual screening examination. PERTINENT HISTORY: Grandmother with breast cancer. History of remote right breast biopsy. TECHNIQUE: Digital bilateral breast erik (3D mammographic acquisition) in the CC and MLO projections. 2-D mediolateral oblique (MLO) and craniocaudad (CC) views of both breasts were obtained. CAD: Full Field Digital Mammography with Computer Added Detection was performed. COMPARISON: No comparison mammograms available at this time. If any prior films become available, an addendum to this report can be generated. FINDINGS: Breast Composition: The breasts are heterogeneously dense, which may obscure small masses. There are no dominant masses or suspicious calcifications. Findings suggestive of scarring in the inferior retroareolar region of the right breast and compared with prior history of breast biopsy. A tissue clip marker is seen in the central lateral anterior aspect of the right breast. No other significant abnormalities are identified. BI/SCRN MAMM (CAD)W/ERIK BILAT IMPRESSION: Negative screening mammogram. Yearly followup mammogram recommended. (A) ASSESSMENT CATEGORY: BIRADS Category 2: Benign. A letter regarding these results will be sent to the patient by the facility within 30 days. Approximately 10% of breast cancers are not detected by mammography. A normal mammogram should not delay biopsy of a clinically suspicious abnormality. [id number] Electronically Signed: Edi Olivarez MD at 13:24 EST ,
== END | disposition home or self-care (01) ==
LOC: OPBI 11:41
PROVIDERS: PCP Nurse Practitioner Family; Referring Provider Nurse Practitioner Family; Visit Provider Nurse Practitioner Family
DX: Z12.31 Encounter for screening mammogram for malignant neoplasm of breast (principal)
CPT/HCPCS: 77063; 77067

== ENCOUNTER → 2024-04-01 | Outpatient (CLI) | payer OTHER, SELFPAY ==
[2024-04-11 10:07] LABS: Age Gdln ACOG Testing 30-65 (.); HPV APTIMA, High Risk Negative (Negative)
[2024-04-11 12:42] LABS: HPV Reflexed? YES, CHARGE PATIENT
== END | disposition home or self-care (01) ==
PROVIDERS: PCP Nurse Practitioner Family; Referring Provider Nurse Practitioner Family; Visit Provider Nurse Practitioner Family
DX: Z12.4 Encounter for screening for malignant neoplasm of cervix (principal)
CPT/HCPCS: 87624; 88175; G0145